=== PATIENT | male | born 1940 | race Hispanic/Latino ===

== ENCOUNTER 2018-06-25 15:01 | Inpatient (IN) | payer MEDICARE ==
[~2018-06-25] VITALS: Ht 172.7 cm; Wt 65.5 kg
[2018-06-25 15:42] LABS: BASOPHILS % (AUTO) 0.7 % (0.0-5.0); EOSINOPHILS % (AUTO) 2.8 % (0.0-8.0); HEMATOCRIT 30.9 % (42-54); LYMPHOCYTES % (AUTO) 18.9 % (21.0-51.0); MEAN CORPUSCULAR HEMOGLOBIN 33.1 pg (27.0-33.0); MEAN CORPUSCULAR HGB CONC 35.2 g/dL (32.0-36.0); MONOCYTES % (AUTO) 7.3 % (3.0-13.0); NEUTROPHILS % (AUTO) 70.3 % (40.0-77.0); PLATELET COUNT (AUTO) 545 K/uL (130-400); RED BLOOD CELL COUNT(AUTO) 3.29 MIL/uL (4.50-6.20); RED CELL DISTRIBUTION WIDTH 13.1 % (11.0-15.5); WHITE BLOOD COUNT (AUTO) 4.9 K/uL (4.8-10.8)
[2018-06-25 15:49] LABS: INR 0.97 (0.85-1.15); PARTIAL THROMBOPLASTIN TIME 27.1 SEC (26.3-35.5); PROTHROMBIN TIME 10.2 SEC (9.6-11.6)
[2018-06-25 15:52] LABS: APPEARANCE,URINE Clear (CLEAR); BILIRUBIN,URINE Negative (NEGATIVE); COLOR,URINE Yellow (YELLOW); GLUCOSE, URINE (UA) Negative (NEGATIVE); KETONES,URINE Negative (NEGATIVE); LEUKOCYTE ESTERASE ,URINE Negative (NEGATIVE); NITRATE,URINE Negative (NEGATIVE); OCCULT BLOOD,URINE Negative (NEGATIVE); PH,URINE 7.5 (5.0-8.0); PROTEIN,URINE Negative (NEGATIVE)
[2018-06-25 15:55] LABS: ALBUMIN 3.1 g/dL (3.5-5.0); BILIRUBIN,TOTAL 0.4 mg/dL (0.2-1.0); POTASSIUM 4.3 mmol/L (3.5-5.1); TOTAL PROTEIN, SERUM 8.1 g/dL (6.0-8.3)
[2018-06-25 16:20] LABS: B-TYPE NATRIURETIC PEPTIDE 39 pg/mL (0-100)
[2018-06-25] MEDS ORDERED: SODIUM CHLORIDE 0.9% 1000ML 1,000 ML IV ONE ×2 (16:39→17:35)
[2018-06-25] MEDS ORDERED: LEVOTHYROXINE 25 MCG TABLET ONE (16:40)
[2018-06-25] MEDS: SODIUM CHLORIDE 0.9% 1000ML 1,000 ML IV SCH (17:01)
[2018-06-25] MEDS: LEVOFLOXACIN 500 MG/D5W 100 ML 100 ML IV SCH (17:15)
[2018-06-25] MEDS: METHYLPREDNISOLONE SOD SUCC 125MG/2ML VIAL IVP SCH (17:15)
[2018-06-25] MEDS ORDERED: ACETAMINOPHEN 325 MG TAB PO PRN (17:15)
[2018-06-25] MEDS ORDERED: LEVOFLOXACIN 500 MG/D5W 100 ML 100 ML ONE (17:34)
[2018-06-25] MEDS ORDERED: METHYLPREDNISOLONE SOD SUCC 125MG/2ML VIAL ONE (17:34)
[2018-06-25 18:45] VITALS: BP 121/61
[2018-06-25] MEDS: IPRATROPIUM/ALBUTEROL SULFATE 3 ML SOLUTION IH SCH ×2 (19:22→21:44)
[2018-06-25 19:35] VITALS: BP 112/61
[2018-06-25] MEDS: INSULIN HUMULIN R 100 UNIT/ML 3ML SQ SCH (20:21)
[2018-06-25] MEDS ORDERED: LEVO50TA11 PO (21:02)
[2018-06-25] MEDS ORDERED: TEMA30CA PO (21:02)
[2018-06-25] MEDS ORDERED: MULT-1259 PO (21:02)
[2018-06-25] MEDS ORDERED: METO-391 PO (21:02)
[2018-06-25] MEDS ORDERED: AMLO10TA7 PO (21:02)
[2018-06-25] MEDS ORDERED: FLUT15.88 NS (21:02)
[2018-06-25 23:15] VITALS: BP 98/57
[2018-06-26] MEDS: METHYLPREDNISOLONE SOD SUCC 125MG/2ML VIAL IVP SCH ×3 (01:01→16:49)
[2018-06-26] MEDS: SODIUM CHLORIDE 0.9% 1000ML 1,000 ML IV SCH ×2 (01:02→16:52)
[2018-06-26] MEDS: IPRATROPIUM/ALBUTEROL SULFATE 3 ML SOLUTION IH SCH ×6 (01:38→22:05)
[2018-06-26 03:45] VITALS: BP 82/44
[2018-06-26] MEDS ORDERED: SODIUM CHLORIDE 0.9% 500ML 500 ML IV SCH (04:00)
--- NOTE | 2018-06-26 04:05 | NUR ---
B/P B/P 82/44, PULSE 88 RESPIRATION 18, TEMP 98.9 F, SAT 98 % ON R/A, TEMP 98.9 F, PATIENT NO SOB, NO C/O PAIN AT THIS TIME,CALLED HOSPITALIST [employer]PER[facility] PAC WITH ORDERS, 500 CC BOLUS OF NS AND RESUME IVF AT 100 CC /HR PREVIOUSLY ORDERED
--- NOTE | 2018-06-26 04:29 | NUR ---
MED EFFECT B/P 91/50 ,PULSE 88, RESP 18, TEMP 98.7 FM SAT 100 % ON R/A, CONTINUE WITH IVF OF NS AT 100CC/HR
[2018-06-26] MEDS: INSULIN HUMULIN R 100 UNIT/ML 3ML SQ SCH ×4 (06:13→20:53)
[2018-06-26 08:43] VITALS: BP 111/55
[2018-06-26] MEDS: PANTOPRAZOLE SODIUM 40 MG TABLET.DR PO SCH (09:41)
[2018-06-26] MEDS: ENOXAPARIN SODIUM 30 MG/0.3 ML SQ SCH (09:42)
[2018-06-26 12:27] VITALS: BP 118/59
[2018-06-26 16:46] VITALS: BP 105/55
[2018-06-26] MEDS: LEVOFLOXACIN 500 MG/D5W 100 ML 100 ML IV SCH (16:49)
--- NOTE | 2018-06-26 17:46 | NUR ---
D/C PLAN CM spoke to pt and family regarding d/c planning. Pt lives with sisters. Denies having any home health or DME. Pt states he was previously ind. with ADL's but become weak over the past month. Pt states he is now needing assistance with ADL's. CM offered short term snf/rehab as poss. d/c option. Pt is agreeable. CM offered options. Pt requesting [facility] nursing and rehab. CM obtained consent. CM to fax referral and f/u. Addendum: 06/26/18 at 1750 by ETHAN MONROE Amended: Links added.
[2018-06-26] MEDS ORDERED: MEGESTROL 400 MG/10 ML UDCUP PO SCH (19:30)
[2018-06-26 20:29] VITALS: BP 113/55
[2018-06-26] MEDS: TEMAZEPAM 30 MG CAP PO PRN (22:29)
[2018-06-27 00:06] VITALS: BP 105/50
[2018-06-27] MEDS: METHYLPREDNISOLONE SOD SUCC 125MG/2ML VIAL IVP SCH ×3 (01:22→16:25)
[2018-06-27] MEDS: SODIUM CHLORIDE 0.9% 1000ML 1,000 ML IV SCH ×3 (01:23→18:28)
[2018-06-27] MEDS: IPRATROPIUM/ALBUTEROL SULFATE 3 ML SOLUTION IH SCH ×6 (02:09→21:42)
[2018-06-27 04:19] VITALS: BP 95/50
[2018-06-27 04:50] LABS: HEMATOCRIT 23.9 % (42-54); MEAN CORPUSCULAR HEMOGLOBIN 33.4 pg (27.0-33.0); MEAN CORPUSCULAR HGB CONC 35.4 g/dL (32.0-36.0); MEAN CORPUSCULAR VOLUME 94.5 fL (79-99); PLATELET COUNT (AUTO) 452 K/uL (130-400); RED BLOOD CELL COUNT(AUTO) 2.53 MIL/uL (4.50-6.20); RED CELL DISTRIBUTION WIDTH 13.8 % (11.0-15.5); WHITE BLOOD COUNT (AUTO) 7.3 K/uL (4.8-10.8)
[2018-06-27 05:08] LABS: HEMOGLOBIN A1C 6.8 % (4.0-6.0)
[2018-06-27 05:09] LABS: ALBUMIN 2.4 g/dL (3.5-5.0); CREATININE 0.9 mg/dL (0.5-1.5); MAGNESIUM 1.8 mg/dL (1.80-2.40); PHOSPHORUS 2.2 mg/dL (2.5-4.9); POTASSIUM 4.1 mmol/L (3.5-5.1)
[2018-06-27] MEDS: LEVOTHYROXINE 50 MCG TABLET PO SCH (06:38)
[2018-06-27] MEDS: INSULIN HUMULIN R 100 UNIT/ML 3ML SQ SCH ×4 (06:41→21:04)
[2018-06-27 07:30] VITALS: BP 104/49
[2018-06-27] MEDS: ***HM***Metoprolol Succinate 50 MG PO SCH ×2 (09:00→20:14)
[2018-06-27] MEDS: FLUTICASONE PROPIONATE 50MCG/SPRAY 16 GM BOTTLE NS SCH (09:05)
[2018-06-27] MEDS: PANTOPRAZOLE SODIUM 40 MG TABLET.DR PO SCH (09:06)
[2018-06-27] MEDS: MEGESTROL 400 MG/10 ML UDCUP PO SCH (09:06)
[2018-06-27] MEDS: AMLODIPINE BESYLATE 5 MG TAB PO SCH (09:06)
[2018-06-27] MEDS: ENOXAPARIN SODIUM 30 MG/0.3 ML SQ SCH (09:08)
[2018-06-27 11:00] VITALS: BP 103/59
--- NOTE | 2018-06-27 13:39 | NUR ---
RD Notification RD notification for unintentional weight loss, loss of appetite. Patient with improved appetite at 100%. Patient with no GI distress, tolerating soft diet. Rec to add 75gm CCD modifier secondary to Hx DM. Rec to add Glucerna QD secondary to weight loss; patient agrees and reports to drink regularly at home. Patient LBM 06/24/18. Patient monitored labs: Glu 203, Alb 2.4, P 2.2. RD to continue to monitor. Please notify RD as nutritional concerns arise. Thank you. Addendum: 06/27/18 at [address] Amended: Links added.
[2018-06-27 16:00] VITALS: BP 128/64
[2018-06-27] MEDS: LEVOFLOXACIN 500 MG/D5W 100 ML 100 ML IV SCH (16:23)
[2018-06-27 20:30] VITALS: BP 110/52
[2018-06-27] MEDS: TEMAZEPAM 30 MG CAP PO PRN (21:38)
[2018-06-28] MEDS: METHYLPREDNISOLONE SOD SUCC 125MG/2ML VIAL IVP SCH (00:37)
[2018-06-28 00:59] VITALS: BP 95/49
[2018-06-28] MEDS: IPRATROPIUM/ALBUTEROL SULFATE 3 ML SOLUTION IH SCH ×5 (01:43→18:38)
[2018-06-28] MEDS: SODIUM CHLORIDE 0.9% 1000ML 1,000 ML IV SCH (04:19)
[2018-06-28 04:32] VITALS: BP 96/52
[2018-06-28 04:49] LABS: BASOPHILS % (AUTO) 0.1 % (0.0-5.0); HEMATOCRIT 24.9 % (42-54); LYMPHOCYTES % (AUTO) 3.9 % (21.0-51.0); MEAN CORPUSCULAR HEMOGLOBIN 33.4 pg (27.0-33.0); MEAN CORPUSCULAR VOLUME 95.4 fL (79-99); MONOCYTES % (AUTO) 2.6 % (3.0-13.0); NEUTROPHILS % (AUTO) 93.4 % (40.0-77.0); PLATELET COUNT (AUTO) 491 K/uL (130-400); RED BLOOD CELL COUNT(AUTO) 2.61 MIL/uL (4.50-6.20); RED CELL DISTRIBUTION WIDTH 13.7 % (11.0-15.5); WHITE BLOOD COUNT (AUTO) 8.3 K/uL (4.8-10.8)
[2018-06-28 05:00] LABS: CREATININE 1.2 mg/dL (0.5-1.5); POTASSIUM 3.6 mmol/L (3.5-5.1)
[2018-06-28] MEDS: LEVOTHYROXINE 50 MCG TABLET PO SCH (06:01)
[2018-06-28] MEDS: INSULIN HUMULIN R 100 UNIT/ML 3ML SQ SCH ×3 (06:05→17:55)
[2018-06-28 08:00] VITALS: BP 103/50
[2018-06-28] MEDS: PANTOPRAZOLE SODIUM 40 MG TABLET.DR PO SCH (09:53)
[2018-06-28] MEDS: ENOXAPARIN SODIUM 30 MG/0.3 ML SQ SCH (09:53)
[2018-06-28] MEDS: MEGESTROL 400 MG/10 ML UDCUP PO SCH (09:53)
[2018-06-28] MEDS: FLUTICASONE PROPIONATE 50MCG/SPRAY 16 GM BOTTLE NS SCH (09:54)
[2018-06-28] MEDS: AMLODIPINE BESYLATE 5 MG TAB PO SCH (09:54)
[2018-06-28] MEDS: ***HM***Metoprolol Succinate 50 MG PO SCH (09:58)
[2018-06-28 12:00] VITALS: BP 103/56
[2018-06-28 16:00] VITALS: BP 115/58
[2018-06-28] MEDS: LEVOFLOXACIN 500 MG/D5W 100 ML 100 ML IV SCH (17:48)
[2018-06-28 19:10] VITALS: BP 121/60
--- NOTE | 2018-06-28 20:50 | NUR ---
GAVE REPORT TO [facility]. THEY WILL SEND A VAN
[2018-06-28] MEDS ORDERED: METHYLPREDNISOLONE SOD SUCC 125MG/2ML VIAL IVP SCH (21:00)
== END 2018-06-28 20:45 | DRG 190 ==
LOC: EDH 15:01 → OBSVTOIN 17:01 → EDHIP 17:01 → 4CH 18:29
PROVIDERS: ADMIT Hospitalist; ATTEND Hospitalist
DX: J44.0 Chronic obstructive pulmonary disease with (acute) lower respiratory infection (principal); J18.9 Pneumonia, unspecified organism; E87.1 Hypo-osmolality and hyponatremia; J44.1 Chronic obstructive pulmonary disease with (acute) exacerbation; E11.9 Type 2 diabetes mellitus without complications; I10 Essential (primary) hypertension; E03.9 Hypothyroidism, unspecified; E78.5 Hyperlipidemia, unspecified; R62.7 Adult failure to thrive; R63.4 Abnormal weight loss; Z68.22 Body mass index [BMI] 22.0-22.9, adult; Z99.81 Dependence on supplemental oxygen
CPT/HCPCS: 36415; 70450; 71045; 71250; 80048; 80053; 81003; 82040; 82150; 82550; 82948; 83036; 83605; 83690; 83735; 83880; 83930; 83935; 84100; 84443; 85025; 85027; 85610; 85730; 87040; 87071; 87205; 93005; 94640; 94664; 97039; 99291; G0378; J1650; J1815; J1956; J2930; J7030

== ENCOUNTER → 2019-05-05 | Outpatient (CLI) | payer MEDICARE ==
[~2019-05-05] MED LIST: ALBU8.5H8 IH; ASPI-555 PO; CILO50TA PO; FLUT15.845 NS; LEVO88TA7 PO; METO-391 PO; SODI100037 PO; SODI1TAB4 PO; TEMA15CA PO
== END | disposition home or self-care (01) ==
LOC: RAH 10:36
PROVIDERS: ATTEND Internal Medicine Critical Care Medicine
DX: J47.9 Bronchiectasis, uncomplicated (principal); J43.9 Emphysema, unspecified; I70.0 Atherosclerosis of aorta
CPT/HCPCS: 71250

== ENCOUNTER 2022-04-11 21:12 | Inpatient (IN) | payer OTHER, MEDICARE ==
[~2022-04-11] VITALS: Ht 165.1 cm; Wt 57.2 kg
[~2022-04-11 21:12] MED LIST changes: -ALBU8.5H8 IH; +AMLO2.5T4 PO; -ASPI-555 PO; +ASPI-556 PO; -CILO50TA PO; -FLUT15.845 NS; +LEVO100T12 PO; -LEVO88TA7 PO; -METO-391 PO; -SODI100037 PO; -SODI1TAB4 PO; -TEMA15CA PO; +VALS320T16 PO
[2022-04-11 21:32] LABS: BASOPHILS % (AUTO) 0.5 % (0.0-5.0); EOSINOPHILS % (AUTO) 3.5 % (0.0-8.0); LYMPHOCYTES % (AUTO) 13.3 % (21.0-51.0); MEAN CORPUSCULAR HEMOGLOBIN 30.7 pg (27.0-33.0); MEAN CORPUSCULAR VOLUME 87.8 fL (79-99); NEUTROPHILS % (AUTO) 72.4 % (40.0-77.0); PLATELET COUNT (AUTO) 270 K/uL (130-400); RED BLOOD CELL COUNT(AUTO) 3.19 MIL/uL (4.50-6.20); RED CELL DISTRIBUTION WIDTH 15.9 % (11.0-15.5)
[2022-04-11 21:49] LABS: B-TYPE NATRIURETIC PEPTIDE 103 pg/mL (0-100)
[2022-04-11 21:52] LABS: CREATININE 0.7 mg/dL (0.5-1.5); POTASSIUM 4.2 mmol/L (3.5-5.1); TOTAL PROTEIN, SERUM 6.8 g/dL (6.0-8.3)
[2022-04-11] MEDS ORDERED: ONDANSETRON 4MG INJ IVP ONE (22:00)
[2022-04-11] MEDS ORDERED: 0.9%NACL 1000ML 1,000 ML IV ONE (22:00)
[2022-04-11] MEDS ORDERED: ACETAMINOPHEN 325 MG TAB PO PRN (23:00)
[2022-04-11] MEDS ORDERED: 0.9%NACL 1000ML 1,000 ML IV SCH (23:00)
[2022-04-11] MEDS ORDERED: LABETALOL 20MG SYG IV PRN (23:00)
[2022-04-11] MEDS ORDERED: CLONIDINE HCL 0.1 MG TABLET PO PRN (23:00)
[2022-04-11] MEDS ORDERED: HYDRALAZINE 20MG/ML VIAL IV PRN (23:00)
[2022-04-11] MEDS ORDERED: ONDANSETRON 4MG INJ IVP PRN (23:00)
[2022-04-11] MEDS ORDERED: ACETAMINOPHEN 650 MG SUPPOSITORY RC PRN (23:00)
[2022-04-11] MEDS: OSELTAMIVIR PHOSPHATE 75 MG CAP PO SCH (23:25)
[2022-04-11] MEDS: 0.9%NACL 1000ML 1,000 ML IV SCH (23:33)
[2022-04-12] MEDS ORDERED: POTASSIUM CHLORIDE 20MEQ/100ML 100 ML IV PRN
[2022-04-12] MEDS ORDERED: KCL 20 MEQ ERTAB PO PRN
[2022-04-12] MEDS ORDERED: GLUCAGON 1MG KIT 1 MG ML IM PRN
[2022-04-12] MEDS ORDERED: DEXTROSE 50%-WATER 50 ML DISP.SYRIN IV PRN
[2022-04-12] MEDS ORDERED: LIDOCAINE HCL-MPF 1% 2ML VIAL IV PRN
[2022-04-12 01:55] VITALS: BP 144/74
[2022-04-12 02:20] LABS: APPEARANCE,URINE CLEAR (CLEAR); BILIRUBIN,URINE NEGATIVE (NEGATIVE); COLOR,URINE LIGHT-YELLOW (YELLOW); GLUCOSE, URINE (UA) NEGATIVE (NEGATIVE); KETONES,URINE NEGATIVE (NEGATIVE); LEUKOCYTE ESTERASE ,URINE NEGATIVE Leu/uL (NEGATIVE); NITRATE,URINE NEGATIVE (NEGATIVE); OCCULT BLOOD,URINE NEGATIVE (NEGATIVE); PROTEIN,URINE NEGATIVE (NEGATIVE)
[2022-04-12] MEDS ORDERED: TRAZ-185 PO (02:50)
[2022-04-12] MEDS ORDERED: METO-408 PO (02:50)
[2022-04-12] MEDS ORDERED: MIDO5TAB4 PO (02:50)
[2022-04-12] MEDS ORDERED: ASPI-1197 PO (02:53)
[2022-04-12] MEDS ORDERED: FAMO40TA7 PO (02:53)
[2022-04-12] MEDS ORDERED: MONT-39 PO (02:53)
[2022-04-12] MEDS ORDERED: CLOP75TA32 PO (02:53)
[2022-04-12] MEDS ORDERED: ATOR10 PO (02:53)
[2022-04-12 04:12] VITALS: BP 129/71
[2022-04-12] MEDS: INSULIN HUMULIN R 100 UNIT/ML 3ML SQ SCH ×4 (05:57→21:00)
[2022-04-12 06:10] LABS: BASOPHILS % (AUTO) 0.9 % (0.0-5.0); EOSINOPHILS % (AUTO) 7.4 % (0.0-8.0); LYMPHOCYTES % (AUTO) 20.8 % (21.0-51.0); MEAN CORPUSCULAR HEMOGLOBIN 30.7 pg (27.0-33.0); MEAN CORPUSCULAR HGB CONC 33.4 g/dL (32.0-36.0); MEAN CORPUSCULAR VOLUME 91.8 fL (79-99); MONOCYTES % (AUTO) 10.7 % (3.0-13.0); NEUTROPHILS % (AUTO) 59.8 % (40.0-77.0); PLATELET COUNT (AUTO) 250 K/uL (130-400); RED BLOOD CELL COUNT(AUTO) 3.16 MIL/uL (4.50-6.20); WHITE BLOOD COUNT (AUTO) 4.6 K/uL (4.8-10.8)
[2022-04-12 06:25] LABS: CREATININE 0.7 mg/dL (0.5-1.5); MAGNESIUM 1.5 mg/dL (1.80-2.40); PHOSPHORUS 2.7 mg/dL (2.5-4.9); POTASSIUM 4.8 mmol/L (3.5-5.1)
[2022-04-12] MEDS: MAGNESIUM 2GM PREMIX 50ML 50 ML IV PRN (06:32)
[2022-04-12] MEDS ORDERED: SODIUM CHLORIDE 1,000 MG TAB PO SCH (08:24)
[2022-04-12 08:30] VITALS: BP 121/68
[2022-04-12] MEDS ORDERED: ALBUTEROL 0.083% 2.5 MG/3 ML INH IH PRN (09:00)
[2022-04-12] MEDS ORDERED: IPRATROPIUM 0.5 MG/2.5 ML INH IH PRN (09:00)
[2022-04-12] MEDS: DOCUSATE SODIUM 100 MG CAP PO PRN (09:11)
[2022-04-12] MEDS: 0.9%NACL 1000ML 1,000 ML IV SCH (09:11)
[2022-04-12] MEDS: OSELTAMIVIR PHOSPHATE 75 MG CAP PO SCH ×2 (09:11→21:49)
[2022-04-12 11:00] VITALS: BP 112/59
[2022-04-12] MEDS: PANTOPRAZOLE 40 MG/VIAL IVP SCH ×2 (11:21→21:49)
[2022-04-12] MEDS: GUAIFENESIN-DM 200/20 MG 10 ML PO PRN (11:21)
[2022-04-12] MEDS: ASPIRIN 81MG CHEW TAB PO SCH (11:22)
[2022-04-12] MEDS: CLOPIDOGREL 75MG TAB PO SCH (11:22)
[2022-04-12] MEDS: METOPROLOL SUCCINATE 25 MG TAB.SR.24H PO SCH (11:23)
[2022-04-12] MEDS: LEVOTHYROXINE 100 MCG TABLET PO SCH (11:24)
[2022-04-12] MEDS: FERROUS SULFATE 325 MG TABLET.DR PO SCH (11:24)
[2022-04-12] MEDS: MONTELUKAST SODIUM 10 MG TAB PO SCH (11:25)
[2022-04-12] MEDS: ENOXAPARIN SODIUM 40 MG/0.4 ML SYRINGE SQ SCH (11:35)
[2022-04-12 16:00] VITALS: BP 110/61
[2022-04-12 20:00] VITALS: BP 97/51
[2022-04-12] MEDS: ATORVASTATIN 10 MG TABLET PO SCH (21:49)
[2022-04-12] MEDS: TEMAZEPAM 15 MG CAPSULE PO PRN (23:54)
[2022-04-13] VITALS (7 sets, daily range): BP systolic 98–126; BP diastolic 50–70
[2022-04-13 04:45] LABS: HEMATOCRIT 27.2 % (42-54); MEAN CORPUSCULAR HEMOGLOBIN 30.6 pg (27.0-33.0); MEAN CORPUSCULAR HGB CONC 33.5 g/dL (32.0-36.0); MEAN CORPUSCULAR VOLUME 91.6 fL (79-99); RED BLOOD CELL COUNT(AUTO) 2.97 MIL/uL (4.50-6.20); RED CELL DISTRIBUTION WIDTH 15.9 % (11.0-15.5); WHITE BLOOD COUNT (AUTO) 4.5 K/uL (4.8-10.8)
[2022-04-13 05:16] LABS: ALBUMIN 2.6 g/dL (3.5-5.0); BILIRUBIN,DIRECT 0.3 mg/dL (0.0-0.3); CREATININE 0.7 mg/dL (0.5-1.5); THYROID STIMULATING HORMONE 6.04 uIU/mL (0.36-3.74)
[2022-04-13] MEDS: INSULIN HUMULIN R 100 UNIT/ML 3ML SQ SCH ×4 (06:30→20:28)
[2022-04-13] MEDS: LEVOTHYROXINE 100 MCG TABLET PO SCH (06:33)
[2022-04-13] MEDS: 0.9%NACL 1000ML 1,000 ML IV SCH ×3 (06:33→23:44)
[2022-04-13] MEDS: GUAIFENESIN-DM 200/20 MG 10 ML PO PRN ×2 (06:33→18:20)
[2022-04-13] MEDS: MAGNESIUM 2GM PREMIX 50ML 50 ML IV PRN (07:01)
[2022-04-13] MEDS: ENOXAPARIN SODIUM 40 MG/0.4 ML SYRINGE SQ SCH (09:00)
[2022-04-13] MEDS: PANTOPRAZOLE 40 MG/VIAL IVP SCH ×2 (09:04→20:30)
[2022-04-13] MEDS: DOCUSATE SODIUM 100 MG CAP PO PRN (09:04)
[2022-04-13] MEDS: MONTELUKAST SODIUM 10 MG TAB PO SCH (09:04)
[2022-04-13] MEDS: FERROUS SULFATE 325 MG TABLET.DR PO SCH (09:04)
[2022-04-13] MEDS: METOPROLOL SUCCINATE 25 MG TAB.SR.24H PO SCH (09:04)
[2022-04-13] MEDS: METOCLOPRAMIDE 10 MG TABLET PO SCH ×3 (09:05→16:11)
[2022-04-13] MEDS: CLOPIDOGREL 75MG TAB PO SCH (09:05)
[2022-04-13] MEDS: OSELTAMIVIR PHOSPHATE 75 MG CAP PO SCH ×2 (09:05→20:29)
[2022-04-13] MEDS: ASPIRIN 81MG CHEW TAB PO SCH (09:05)
[2022-04-13] MEDS: SODIUM CHLORIDE 1,000 MG TAB PO SCH ×2 (18:20→23:44)
[2022-04-13] MEDS: ATORVASTATIN 10 MG TABLET PO SCH (20:30)
[2022-04-13] MEDS: TEMAZEPAM 15 MG CAPSULE PO PRN (21:40)
[2022-04-14 03:50] VITALS: BP 119/55
[2022-04-14 05:04] LABS: HEMATOCRIT 26.3 % (42-54); MEAN CORPUSCULAR HEMOGLOBIN 30.3 pg (27.0-33.0); MEAN CORPUSCULAR HGB CONC 34.2 g/dL (32.0-36.0); MEAN CORPUSCULAR VOLUME 88.6 fL (79-99); RED BLOOD CELL COUNT(AUTO) 2.97 MIL/uL (4.50-6.20); RED CELL DISTRIBUTION WIDTH 15.6 % (11.0-15.5); WHITE BLOOD COUNT (AUTO) 6.2 K/uL (4.8-10.8)
[2022-04-14 05:13] LABS: CREATININE 0.6 mg/dL (0.5-1.5); MAGNESIUM 1.6 mg/dL (1.80-2.40); POTASSIUM 3.7 mmol/L (3.5-5.1)
[2022-04-14] MEDS: INSULIN HUMULIN R 100 UNIT/ML 3ML SQ SCH ×4 (05:42→20:35)
[2022-04-14] MEDS: LEVOTHYROXINE 100 MCG TABLET PO SCH (05:43)
[2022-04-14] MEDS: SODIUM CHLORIDE 1,000 MG TAB PO SCH ×3 (05:43→17:10)
[2022-04-14] MEDS: MAGNESIUM 2GM PREMIX 50ML 50 ML IV PRN (05:44)
[2022-04-14 07:30] VITALS: BP 114/57
[2022-04-14] MEDS: MONTELUKAST SODIUM 10 MG TAB PO SCH (08:51)
[2022-04-14] MEDS: PANTOPRAZOLE 40 MG/VIAL IVP SCH ×2 (08:51→20:29)
[2022-04-14] MEDS: METOCLOPRAMIDE 10 MG TABLET PO SCH ×3 (08:51→17:10)
[2022-04-14] MEDS: OSELTAMIVIR PHOSPHATE 75 MG CAP PO SCH ×2 (08:51→20:29)
[2022-04-14] MEDS: PAROXETINE HCL 20 MG TABLET PO SCH (08:52)
[2022-04-14] MEDS: METOPROLOL SUCCINATE 25 MG TAB.SR.24H PO SCH (08:52)
[2022-04-14] MEDS: CLOPIDOGREL 75MG TAB PO SCH (08:52)
[2022-04-14] MEDS: FERROUS SULFATE 325 MG TABLET.DR PO SCH (08:52)
[2022-04-14] MEDS: ASPIRIN 81MG CHEW TAB PO SCH (08:52)
[2022-04-14] MEDS: ENOXAPARIN SODIUM 40 MG/0.4 ML SYRINGE SQ SCH (08:53)
[2022-04-14 11:00] VITALS: BP 114/62
[2022-04-14 16:00] VITALS: BP 127/66
[2022-04-14] MEDS ORDERED: TEMAZEPAM 7.5 MG CAPSULE PO PRN (16:30)
[2022-04-14 19:57] VITALS: BP 119/67
[2022-04-14] MEDS: ATORVASTATIN 10 MG TABLET PO SCH (20:29)
[2022-04-14 23:48] VITALS: BP 83/44
[2022-04-15 03:10] VITALS: BP 104/51
[2022-04-15 04:34] LABS: HEMATOCRIT 25.7 % (42-54); MEAN CORPUSCULAR HEMOGLOBIN 30.9 pg (27.0-33.0); MEAN CORPUSCULAR HGB CONC 34.2 g/dL (32.0-36.0); MEAN CORPUSCULAR VOLUME 90.2 fL (79-99); RED BLOOD CELL COUNT(AUTO) 2.85 MIL/uL (4.50-6.20); RED CELL DISTRIBUTION WIDTH 15.6 % (11.0-15.5); WHITE BLOOD COUNT (AUTO) 5.5 K/uL (4.8-10.8)
[2022-04-15 04:54] LABS: CREATININE 0.6 mg/dL (0.5-1.5); MAGNESIUM 1.5 mg/dL (1.80-2.40); POTASSIUM 3.9 mmol/L (3.5-5.1)
[2022-04-15] MEDS: LEVOTHYROXINE 100 MCG TABLET PO SCH (06:56)
[2022-04-15] MEDS: SODIUM CHLORIDE 1,000 MG TAB PO SCH ×4 (06:56→17:49)
[2022-04-15] MEDS: INSULIN HUMULIN R 100 UNIT/ML 3ML SQ SCH ×4 (07:00→21:00)
[2022-04-15 07:55] VITALS: BP 116/62
[2022-04-15] MEDS: OSELTAMIVIR PHOSPHATE 75 MG CAP PO SCH ×2 (09:44→21:55)
[2022-04-15] MEDS: CLOPIDOGREL 75MG TAB PO SCH (09:44)
[2022-04-15] MEDS: MONTELUKAST SODIUM 10 MG TAB PO SCH (09:44)
[2022-04-15] MEDS: METOPROLOL SUCCINATE 25 MG TAB.SR.24H PO SCH (09:44)
[2022-04-15] MEDS: PAROXETINE HCL 20 MG TABLET PO SCH (09:44)
[2022-04-15] MEDS: ASPIRIN 81MG CHEW TAB PO SCH (09:44)
[2022-04-15] MEDS: FERROUS SULFATE 325 MG TABLET.DR PO SCH (09:44)
[2022-04-15] MEDS: ENOXAPARIN SODIUM 40 MG/0.4 ML SYRINGE SQ SCH (09:45)
[2022-04-15] MEDS: PANTOPRAZOLE 40 MG/VIAL IVP SCH ×2 (09:45→21:55)
[2022-04-15] MEDS: 0.9%NACL 1000ML 1,000 ML IV SCH ×2 (09:45→21:55)
[2022-04-15] MEDS: METOCLOPRAMIDE 10 MG TABLET PO SCH ×3 (10:05→17:05)
[2022-04-15] MEDS: MAGNESIUM 2GM PREMIX 50ML 50 ML IV SCH (11:34)
[2022-04-15 12:00] VITALS: BP 133/71
[2022-04-15 16:00] VITALS: BP 143/74
[2022-04-15 20:00] VITALS: BP 123/72
[2022-04-15] MEDS: ATORVASTATIN 10 MG TABLET PO SCH (21:55)
[2022-04-15 23:42] VITALS: BP 113/59
[2022-04-16] MEDS: SODIUM CHLORIDE 1,000 MG TAB PO SCH ×4 (00:43→19:31)
[2022-04-16 04:00] VITALS: BP 101/55
[2022-04-16 04:56] LABS: HEMATOCRIT 24.9 % (42-54); MEAN CORPUSCULAR HEMOGLOBIN 30.7 pg (27.0-33.0); MEAN CORPUSCULAR HGB CONC 34.9 g/dL (32.0-36.0); RED BLOOD CELL COUNT(AUTO) 2.83 MIL/uL (4.50-6.20); RED CELL DISTRIBUTION WIDTH 15.4 % (11.0-15.5); WHITE BLOOD COUNT (AUTO) 5.6 K/uL (4.8-10.8)
[2022-04-16 05:03] LABS: CREATININE 0.6 mg/dL (0.5-1.5); MAGNESIUM 1.8 mg/dL (1.80-2.40); POTASSIUM 4.2 mmol/L (3.5-5.1)
[2022-04-16] MEDS: INSULIN HUMULIN R 100 UNIT/ML 3ML SQ SCH ×3 (06:01→20:58)
[2022-04-16] MEDS: MAGNESIUM 2GM PREMIX 50ML 50 ML IV SCH (06:31)
[2022-04-16] MEDS ORDERED: PHARMACY COMMUNICATION MISC SCH (07:00)
[2022-04-16 08:00] VITALS: BP_SYST 107; BP_SYST 125; BP_DIAS 65; BP_DIAS 66
[2022-04-16] MEDS: METOPROLOL SUCCINATE 25 MG TAB.SR.24H PO SCH (08:23)
[2022-04-16] MEDS: MONTELUKAST SODIUM 10 MG TAB PO SCH (08:23)
[2022-04-16] MEDS: CLOPIDOGREL 75MG TAB PO SCH (08:23)
[2022-04-16] MEDS: OSELTAMIVIR PHOSPHATE 75 MG CAP PO SCH ×2 (08:23→19:31)
[2022-04-16] MEDS: PAROXETINE HCL 20 MG TABLET PO SCH (08:23)
[2022-04-16] MEDS: ASPIRIN 81MG CHEW TAB PO SCH (08:23)
[2022-04-16] MEDS: FERROUS SULFATE 325 MG TABLET.DR PO SCH (08:23)
[2022-04-16] MEDS: METOCLOPRAMIDE 10 MG TABLET PO SCH ×3 (08:24→17:00)
[2022-04-16] MEDS: ENOXAPARIN SODIUM 40 MG/0.4 ML SYRINGE SQ SCH (08:24)
[2022-04-16] MEDS: PANTOPRAZOLE 40 MG/VIAL IVP SCH ×2 (08:24→19:31)
[2022-04-16 12:00] VITALS: BP 108/65
[2022-04-16] MEDS: 0.9%NACL 1000ML 1,000 ML IV SCH (12:25)
[2022-04-16 15:53] VITALS: BP 102/56
[2022-04-16] MEDS: ATORVASTATIN 10 MG TABLET PO SCH (19:31)
[2022-04-16] MEDS: DOCUSATE SODIUM 100 MG CAP PO PRN (19:36)
[2022-04-16 20:00] VITALS: BP 126/66
[2022-04-17] VITALS: BP 111/60
[2022-04-17 04:00] VITALS: BP 129/65
[2022-04-17] MEDS ORDERED: LEVOTHYROXINE 88 MCG TABLET ONE (04:54)
[2022-04-17] MEDS: LEVOTHYROXINE 88 MCG TABLET PO SCH (04:59)
[2022-04-17] MEDS: SODIUM CHLORIDE 1,000 MG TAB PO SCH ×3 (04:59→19:55)
[2022-04-17] MEDS: INSULIN HUMULIN R 100 UNIT/ML 3ML SQ SCH ×4 (06:34→20:00)
[2022-04-17 08:00] VITALS: BP 139/75
[2022-04-17] MEDS: METOPROLOL SUCCINATE 25 MG TAB.SR.24H PO SCH (09:06)
[2022-04-17] MEDS: CLOPIDOGREL 75MG TAB PO SCH (09:06)
[2022-04-17] MEDS: METOCLOPRAMIDE 10 MG TABLET PO SCH ×3 (09:06→18:07)
[2022-04-17] MEDS: ASPIRIN 81MG CHEW TAB PO SCH (09:06)
[2022-04-17] MEDS: MONTELUKAST SODIUM 10 MG TAB PO SCH (09:06)
[2022-04-17] MEDS: FERROUS SULFATE 325 MG TABLET.DR PO SCH (09:07)
[2022-04-17] MEDS: PAROXETINE HCL 20 MG TABLET PO SCH (09:07)
[2022-04-17] MEDS: PANTOPRAZOLE 40 MG/VIAL IVP SCH ×2 (09:07→19:55)
[2022-04-17] MEDS: ENOXAPARIN SODIUM 40 MG/0.4 ML SYRINGE SQ SCH (09:07)
[2022-04-17 11:46] VITALS: BP 105/53
[2022-04-17] MEDS: LACTULOSE 20 GM/30 ML UDCUP PO PRN (15:26)
[2022-04-17 16:00] VITALS: BP 137/69
[2022-04-17] MEDS: ATORVASTATIN 10 MG TABLET PO SCH (19:55)
[2022-04-17 20:00] VITALS: BP 136/74
[2022-04-18] VITALS: BP 128/65
[2022-04-18] MEDS: SODIUM CHLORIDE 1,000 MG TAB PO SCH ×4 (03:34→19:54)
[2022-04-18 04:00] VITALS: BP 132/65
[2022-04-18] MEDS: LEVOTHYROXINE 88 MCG TABLET PO SCH (05:41)
[2022-04-18] MEDS: INSULIN HUMULIN R 100 UNIT/ML 3ML SQ SCH ×4 (06:12→20:04)
[2022-04-18 08:00] VITALS: BP 116/59
[2022-04-18] MEDS: METOPROLOL SUCCINATE 25 MG TAB.SR.24H PO SCH (08:15)
[2022-04-18] MEDS: MONTELUKAST SODIUM 10 MG TAB PO SCH (08:15)
[2022-04-18] MEDS: FERROUS SULFATE 325 MG TABLET.DR PO SCH (08:15)
[2022-04-18] MEDS: ASPIRIN 81MG CHEW TAB PO SCH (08:16)
[2022-04-18] MEDS: METOCLOPRAMIDE 10 MG TABLET PO SCH ×3 (08:16→17:08)
[2022-04-18] MEDS: CLOPIDOGREL 75MG TAB PO SCH (08:16)
[2022-04-18] MEDS: ENOXAPARIN SODIUM 40 MG/0.4 ML SYRINGE SQ SCH (08:17)
[2022-04-18] MEDS: PANTOPRAZOLE 40 MG/VIAL IVP SCH ×2 (08:19→19:54)
[2022-04-18] MEDS ORDERED: PAROXETINE HCL 20 MG TABLET PO SCH (09:00)
[2022-04-18 13:16] LABS: CREATININE 0.5 mg/dL (0.5-1.5); POTASSIUM 3.5 mmol/L (3.5-5.1)
[2022-04-18 16:00] VITALS: BP 130/69
[2022-04-18] MEDS: LACTULOSE 20 GM/30 ML UDCUP PO PRN (16:58)
[2022-04-18] MEDS: FLUDROCORTISONE ACETATE 0.1 MG TABLET PO SCH (18:36)
[2022-04-18] MEDS ORDERED: MIRTAZAPINE 15 MG TABLET ONE (19:28)
[2022-04-18 19:30] VITALS: BP 121/64
[2022-04-18] MEDS: MIRTAZAPINE 15 MG TABLET PO SCH (19:54)
[2022-04-18] MEDS: HYDROCORTISONE 20 MG TABLET PO SCH (19:54)
[2022-04-18] MEDS: ATORVASTATIN 10 MG TABLET PO SCH (19:54)
[2022-04-18 23:32] VITALS: BP 124/63
[2022-04-19] MEDS: SODIUM CHLORIDE 1,000 MG TAB PO SCH ×4 (02:52→21:37)
[2022-04-19 03:38] VITALS: BP 118/59
[2022-04-19 05:17] LABS: HEMATOCRIT 27.1 % (42-54); MEAN CORPUSCULAR HEMOGLOBIN 30.9 pg (27.0-33.0); MEAN CORPUSCULAR HGB CONC 35.1 g/dL (32.0-36.0); MEAN CORPUSCULAR VOLUME 88.3 fL (79-99); RED BLOOD CELL COUNT(AUTO) 3.07 MIL/uL (4.50-6.20); RED CELL DISTRIBUTION WIDTH 15.7 % (11.0-15.5); WHITE BLOOD COUNT (AUTO) 5.5 K/uL (4.8-10.8)
[2022-04-19 05:28] LABS: CREATININE 0.6 mg/dL (0.5-1.5); POTASSIUM 3.7 mmol/L (3.5-5.1)
[2022-04-19] MEDS: LEVOTHYROXINE 88 MCG TABLET PO SCH (05:32)
[2022-04-19] MEDS: INSULIN HUMULIN R 100 UNIT/ML 3ML SQ SCH ×4 (05:47→20:19)
[2022-04-19 08:00] VITALS: BP 130/69
[2022-04-19] MEDS: PANTOPRAZOLE 40 MG/VIAL IVP SCH ×2 (08:49→21:36)
[2022-04-19] MEDS: ENOXAPARIN SODIUM 40 MG/0.4 ML SYRINGE SQ SCH (08:49)
[2022-04-19] MEDS ORDERED: PAROXETINE HCL 20 MG TABLET PO SCH (09:00)
[2022-04-19 12:00] VITALS: BP 138/68
[2022-04-19] MEDS: METOCLOPRAMIDE 10 MG TABLET PO SCH ×4 (12:00→16:47)
[2022-04-19] MEDS: HYDROCORTISONE 20 MG TABLET PO SCH ×2 (13:55→21:36)
[2022-04-19] MEDS: CLOPIDOGREL 75MG TAB PO SCH (13:56)
[2022-04-19] MEDS: METOPROLOL SUCCINATE 25 MG TAB.SR.24H PO SCH (13:57)
[2022-04-19] MEDS: PAROXETINE HCL 20 MG TABLET PO SCH (13:57)
[2022-04-19] MEDS: MONTELUKAST SODIUM 10 MG TAB PO SCH (13:57)
[2022-04-19] MEDS: ASPIRIN 81MG CHEW TAB PO SCH (13:57)
[2022-04-19] MEDS: FERROUS SULFATE 325 MG TABLET.DR PO SCH (13:57)
[2022-04-19] MEDS: FLUDROCORTISONE ACETATE 0.1 MG TABLET PO SCH (13:58)
[2022-04-19 16:00] VITALS: BP 139/72
[2022-04-19 20:15] VITALS: BP 118/64
[2022-04-19] MEDS: MIRTAZAPINE 15 MG TABLET PO SCH (21:00)
[2022-04-19] MEDS: ATORVASTATIN 10 MG TABLET PO SCH (21:36)
[2022-04-19 23:56] VITALS: BP 92/51
[2022-04-20] MEDS: SODIUM CHLORIDE 1,000 MG TAB PO SCH ×4 (02:54→20:04)
[2022-04-20] MEDS: LACTULOSE 20 GM/30 ML UDCUP PO PRN ×2 (02:54→16:23)
[2022-04-20 03:38] VITALS: BP 130/65
[2022-04-20 04:39] LABS: CREATININE 0.7 mg/dL (0.5-1.5); POTASSIUM 3.3 mmol/L (3.5-5.1)
[2022-04-20] MEDS: LEVOTHYROXINE 88 MCG TABLET PO SCH (05:57)
[2022-04-20 08:00] VITALS: BP 142/70
[2022-04-20] MEDS: CLOPIDOGREL 75MG TAB PO SCH (09:41)
[2022-04-20] MEDS: FERROUS SULFATE 325 MG TABLET.DR PO SCH (09:41)
[2022-04-20] MEDS: FLUDROCORTISONE ACETATE 0.1 MG TABLET PO SCH (09:41)
[2022-04-20] MEDS: PAROXETINE HCL 20 MG TABLET PO SCH (09:42)
[2022-04-20] MEDS: PANTOPRAZOLE 40 MG/VIAL IVP SCH ×2 (09:43→20:04)
[2022-04-20] MEDS: METOCLOPRAMIDE 10 MG TABLET PO SCH ×3 (09:43→15:49)
[2022-04-20] MEDS: METOPROLOL SUCCINATE 25 MG TAB.SR.24H PO SCH (09:43)
[2022-04-20] MEDS: HYDROCORTISONE 20 MG TABLET PO SCH ×2 (09:43→20:04)
[2022-04-20] MEDS: MONTELUKAST SODIUM 10 MG TAB PO SCH (09:43)
[2022-04-20] MEDS: ASPIRIN 81MG CHEW TAB PO SCH (09:43)
[2022-04-20] MEDS: ENOXAPARIN SODIUM 40 MG/0.4 ML SYRINGE SQ SCH (09:43)
[2022-04-20] MEDS: INSULIN HUMULIN R 100 UNIT/ML 3ML SQ SCH ×4 (09:59→21:00)
[2022-04-20 12:00] VITALS: BP 105/55
[2022-04-20 16:00] VITALS: BP 109/57
[2022-04-20] MEDS: POTASSIUM CHLORIDE 10% ELIXIR 20 MEQ/15 ML UDCUP PO PRN ×3 (16:23→20:04)
[2022-04-20 20:00] VITALS: BP 121/48
[2022-04-20] MEDS: ATORVASTATIN 10 MG TABLET PO SCH (20:04)
[2022-04-21] VITALS (7 sets, daily range): BP systolic 99–140; BP diastolic 43–82
[2022-04-21] MEDS: SODIUM CHLORIDE 1,000 MG TAB PO SCH ×4 (02:20→20:06)
[2022-04-21 04:44] LABS: HEMATOCRIT 25.5 % (42-54); MEAN CORPUSCULAR HEMOGLOBIN 30.9 pg (27.0-33.0); MEAN CORPUSCULAR HGB CONC 34.5 g/dL (32.0-36.0); MEAN CORPUSCULAR VOLUME 89.5 fL (79-99); RED BLOOD CELL COUNT(AUTO) 2.85 MIL/uL (4.50-6.20); WHITE BLOOD COUNT (AUTO) 5.9 K/uL (4.8-10.8)
[2022-04-21 04:57] LABS: CREATININE 0.7 mg/dL (0.5-1.5); POTASSIUM 4.4 mmol/L (3.5-5.1)
[2022-04-21] MEDS: LEVOTHYROXINE 88 MCG TABLET PO SCH (06:04)
[2022-04-21] MEDS: INSULIN HUMULIN R 100 UNIT/ML 3ML SQ SCH ×4 (06:11→20:06)
[2022-04-21] MEDS: PANTOPRAZOLE 40 MG/VIAL IVP SCH ×2 (08:34→20:06)
[2022-04-21] MEDS: METOCLOPRAMIDE 10 MG TABLET PO SCH ×3 (08:35→19:25)
[2022-04-21] MEDS: ASPIRIN 81MG CHEW TAB PO SCH (08:35)
[2022-04-21] MEDS: FLUDROCORTISONE ACETATE 0.1 MG TABLET PO SCH (08:35)
[2022-04-21] MEDS: ENOXAPARIN SODIUM 40 MG/0.4 ML SYRINGE SQ SCH (08:35)
[2022-04-21] MEDS: HYDROCORTISONE 20 MG TABLET PO SCH ×2 (08:36→20:06)
[2022-04-21] MEDS: CLOPIDOGREL 75MG TAB PO SCH (08:36)
[2022-04-21] MEDS: PAROXETINE HCL 20 MG TABLET PO SCH (08:36)
[2022-04-21] MEDS: MONTELUKAST SODIUM 10 MG TAB PO SCH (08:36)
[2022-04-21] MEDS: METOPROLOL SUCCINATE 25 MG TAB.SR.24H PO SCH (08:36)
[2022-04-21] MEDS: FERROUS SULFATE 325 MG TABLET.DR PO SCH (08:37)
[2022-04-21] MEDS: ATORVASTATIN 10 MG TABLET PO SCH (20:06)
[2022-04-22] MEDS: SODIUM CHLORIDE 1,000 MG TAB PO SCH ×4 (02:36→15:00)
[2022-04-22 04:06] VITALS: BP 138/79
[2022-04-22 05:42] LABS: BASOPHILS % (AUTO) 0.3 % (0.0-5.0); EOSINOPHILS % (AUTO) 0.3 % (0.0-8.0); HEMATOCRIT 27.7 % (42-54); LYMPHOCYTES % (AUTO) 15.4 % (21.0-51.0); MEAN CORPUSCULAR HEMOGLOBIN 30.9 pg (27.0-33.0); MEAN CORPUSCULAR HGB CONC 34.7 g/dL (32.0-36.0); MEAN CORPUSCULAR VOLUME 89.1 fL (79-99); MONOCYTES % (AUTO) 6.9 % (3.0-13.0); NEUTROPHILS % (AUTO) 76.6 % (40.0-77.0); PLATELET COUNT (AUTO) 222 K/uL (130-400); RED BLOOD CELL COUNT(AUTO) 3.11 MIL/uL (4.50-6.20); RED CELL DISTRIBUTION WIDTH 16.5 % (11.0-15.5); WHITE BLOOD COUNT (AUTO) 7.5 K/uL (4.8-10.8)
[2022-04-22 05:51] LABS: CREATININE 0.8 mg/dL (0.5-1.5); POTASSIUM 4.1 mmol/L (3.5-5.1)
[2022-04-22] MEDS: LEVOTHYROXINE 88 MCG TABLET PO SCH (05:59)
[2022-04-22] MEDS: INSULIN HUMULIN R 100 UNIT/ML 3ML SQ SCH ×3 (06:00→16:30)
[2022-04-22 08:00] VITALS: BP 147/69
[2022-04-22] MEDS: METOPROLOL SUCCINATE 25 MG TAB.SR.24H PO SCH (08:48)
[2022-04-22] MEDS: PAROXETINE HCL 20 MG TABLET PO SCH (08:49)
[2022-04-22] MEDS: CLOPIDOGREL 75MG TAB PO SCH (08:49)
[2022-04-22] MEDS: FERROUS SULFATE 325 MG TABLET.DR PO SCH (08:49)
[2022-04-22] MEDS: ASPIRIN 81MG CHEW TAB PO SCH (08:50)
[2022-04-22] MEDS: METOCLOPRAMIDE 10 MG TABLET PO SCH ×3 (08:50→17:43)
[2022-04-22] MEDS: HYDROCORTISONE 20 MG TABLET PO SCH (08:50)
[2022-04-22] MEDS: MONTELUKAST SODIUM 10 MG TAB PO SCH (08:50)
[2022-04-22] MEDS: ENOXAPARIN SODIUM 40 MG/0.4 ML SYRINGE SQ SCH (08:55)
[2022-04-22] MEDS: FLUDROCORTISONE ACETATE 0.1 MG TABLET PO SCH (08:58)
[2022-04-22] MEDS: PANTOPRAZOLE 40 MG/VIAL IVP SCH (08:59)
[2022-04-22 12:00] VITALS: BP 107/57
[2022-04-22 16:00] VITALS: BP 119/63
== END 2022-04-22 20:50 | DRG 643 ==
LOC: EDH 21:12 → EDHIP 22:31 → OBSVTOIN 22:31 → 4CH 04-12 02:12
PROVIDERS: ADMIT Internal Medicine; ATTEND Internal Medicine
DX: E22.2 Syndrome of inappropriate secretion of antidiuretic hormone (principal); J10.08 Influenza due to other identified influenza virus with other specified pneumonia; J12.9 Viral pneumonia, unspecified; D63.8 Anemia in other chronic diseases classified elsewhere; Z20.822 Contact with and (suspected) exposure to COVID-19; I10 Essential (primary) hypertension; E78.5 Hyperlipidemia, unspecified; I25.10 Atherosclerotic heart disease of native coronary artery without angina pectoris; E03.9 Hypothyroidism, unspecified; E11.9 Type 2 diabetes mellitus without complications; E78.00 Pure hypercholesterolemia, unspecified; Z83.3 Family history of diabetes mellitus; Z82.49 Family history of ischemic heart disease and other diseases of the circulatory system; Z95.1 Presence of aortocoronary bypass graft
CPT/HCPCS: 36415; 71045; 80048; 80053; 80076; 81003; 82533; 82948; 83605; 83735; 83880; 83930; 83935; 84100; 84145; 84295; 84300; 84443; 84484; 85025; 85027; 87635; 87804; 93005; 94664; 97039; 99291; C9113; C9803; G0378; J1650; J1815; J2405; J3475; J7030